=== PATIENT | female | born 1955 | race Two or more races ===

== ENCOUNTER 2017-11-08 15:22 | Emergency (ER) | payer OTHER ==
[~2017-11-08] VITALS: Ht 134.6 cm; Wt 49.9 kg
[~2017-11-08 15:22] MED LIST: BENADRYL50 MG ORAL; PREDNISONE20 MG ORAL; RANITIDINE HCL150 MG ORAL; TRAMADOL HCL50 MG ORAL; ZOFRAN4 MG ORAL
[2017-11-08 15:43] VITALS: BP 167/86
--- NOTE | 2017-11-08 16:35 | Emergency Room Report ---
History of Present Illness General Chief Complaint: Constipation Source: Patient Present Illness HPI 62-year-old female presents to the emergency department complaining of dull 4 out of 10 in severity fullness in the rectum 2 weeks. Patient reports onset of symptoms with moderate itching. Patient denies constipation she reports she has been having stool on the softer side. Patient denies abdominal pain, blood in the stool or melena. Denies hx of hemorrhoids, denies fevers or chills. denies tenderness. pt. reports " feels weird when having bm" and she can feel a little ball in the rectal area. Last BM was today and was normal per pt. Allergies: Coded Allergies: No Known Allergies (Unverified , 10/27/14) Patient History Past Medical History: see triage record Past Surgical History: none Pertinent Family History: none Now: No Nursing Documentation-[facility] Past Medical History: No History, Except For Hx Hypertension: Yes Review of Systems All Other Systems: negative except mentioned in HPI Physical Exam Vital Signs Date Time Temp Pulse Resp B/P (MAP) Pulse Ox O2 Delivery O2 Flow Rate FiO2 11/08/17 15:36 97.8 97 18 167/86 96 Room Air 97.9 Sp02 EP Interpretation: reviewed, normal General Appearance: no apparent distress, alert, GCS 15, non-toxic Head: normocephalic, atraumatic ENT: hearing grossly normal, normal voice Neck: full range of motion Respiratory: lungs clear, normal breath sounds, speaking full sentences Cardiovascular #1: regular rate, rhythm Gastrointestinal: normal bowel sounds, non tender, soft Rectal: deferred, hemorrhoids - no tenderness on palpation. hemorrhoid noted in the 6 o clock position of the rectum, not thrombosed. Genitourinary: normal inspection Musculoskeletal: back normal, gait/station normal, normal range of motion, non- tender Neurologic: alert, oriented x3, responsive, motor strength/tone normal, sensory intact, speech normal, grossly normal Psychiatric: judgement/insight normal Skin: normal color, no rash, warm/dry, well hydrated Lymphatic: no adenopathy Medical Decision Making PA Attestation Dr. Farmer is my supervising Physician whom patient management has been discussed with. Diagnostic Impression: Primary Impression: Acute hemorrhoid Additional Impression: Other hemorrhoids ER Course 62-year-old female presents to the emergency department complaining of dull 4 out of 10 in severity fullness in the rectum 2 weeks. Patient reports onset of symptoms with moderate itching. Patient denies constipation she reports she has been having stool on the softer side. Patient denies abdominal pain, blood in the stool or melena. Denies hx of hemorrhoids, denies fevers or chills. denies tenderness. pt. reports " feels weird when having bm" and she can feel a little ball in the rectal area. Last BM was today and was normal per pt. Ddx considered but are not limited to constipation , anal fissure, perianal abscess, rectal wall tear, thrombosed hemorrhoid, hemorrhoid. Vital signs: are WNL, pt. is afebrile H&PE are most consistent with hemorrhoid , secondary to straining/ constipation. bowl sounds are normo active. no evidence of acute infection - no tenderness on palpation. hemorrhoid noted in the 6 o clock position of the rectum, not thrombosed. ORDERS: none required at this time ED INTERVENTIONS: - Discussed the patient's self care interventions for hemorrhoids d/w pt. conservative treatment, and to follow up with a primary care provider. pt given a list of primary care clinics for follow up. d/w pt. to return to the ED with worsening or new symptoms. DISCHARGE: At this time pt. is stable for d/c to home. Will provide printed patient care instructions, and any necessary prescriptions. Care plan and follow up instructions have been discussed with the patient prior to discharge. Last Vital Signs Date Time Temp Pulse Resp B/P (MAP) Pulse Ox O2 Delivery O2 Flow Rate FiO2 11/08/17 15:43 97.9 97 18 167/86 96 Room Air 97.9 Disposition: HOME, SELF-CARE Condition: Stable Scripts Docusate Sodium* (COLACE*) 100 Mg Capsule 100 MG ORAL DAILY, #6 CAP Prov: Marifer Guillen 11/08/17 Hydrocortisone Hc 2.5% Cream (ANUSOL-HC 2.5% CREAM) Y Cr 30 GM RC BID, #28.3 GM Prov: Marifer Guillen 11/08/17 Referrals: [facility],REFERRING (PCP) Patient Instructions: Hemorrhoids, [id number] Additional Instructions: Take medications as directed. Follow up with a Primary Care Provider in 3-5 days, even if your symptoms have resolved. --Please review list of primary care clinics, if you do not already have a primary care provider Return sooner to ED if new symptoms occur, or current symptoms become worse. - Please note that this Emergency Department Report was dictated using [employer] social worker technology software, occasionally this can lead to erroneous entry secondary to interpretation by the dictation equipment. Marifer Guillen Nov 08, 2017 16:35
[2017-11-08] MEDS ORDERED: ANUSOL-HC30 GM RC (16:36)
[2017-11-08] MEDS ORDERED: COLACE100 MG ORAL (16:36)
[2017-11-08 16:43] VITALS: BP 167/86
== END 2017-11-08 16:43 | disposition home or self-care (01) ==
LOC: EMR 16:10
DX: K64.9 Unspecified hemorrhoids (principal); K59.00 Constipation, unspecified; I10 Essential (primary) hypertension
CPT/HCPCS: 99284